=== PATIENT | male | born 1945 | race Caucasian/White ===

== ENCOUNTER 2019-09-09 10:52 | Outpatient (RCR) | payer MEDICARE, OTHER, SELFPAY ==
[2019-09-09] VITALS (8 sets, daily range): BP systolic 71–111; BP diastolic 48–64; PULSE 60–68; RESP 13–16; TEMP 36–36.7; O2SAT 96–100
[2019-09-09] MEDS: ACETAMINOPHEN 325 MG TABLET 650 MG (11:35)
[2019-09-09] MEDS: ACETAMINOPHEN 325 MG TABLET 650 MG PO (16:09)
[2019-09-09] MEDS: FUROSEMIDE INJ 40 MG/4 ML VIAL 20 MG IV PUSH (16:11)
== END 2019-12-08 23:59 | disposition home or self-care (01) ==
LOC: ANHCPCTRAN 10:52
PROVIDERS: PCP Internal Medicine; Visit Provider Internal Medicine Hematology & Oncology
DX: C22.1 Intrahepatic bile duct carcinoma (principal)
CPT/HCPCS: 36415; 36430; 80053; 83540; 83550; 85025; 86850; 86900; 86901; 86923; A9270; J1940; P9016